=== PATIENT | male | born 1990 | race Caucasian/White ===

== ENCOUNTER 2017-11-04 03:08 | Emergency (ER) | payer SELFPAY ==
[~2017-11-04] VITALS: Ht 188 cm; Wt 82.0 kg
[2017-11-04 04:57] VITALS: BP 117/80
== END 2017-11-04 06:15 | disposition left against medical advice (07) ==
LOC: ED 05:50
DX: F10.120 Alcohol abuse with intoxication, uncomplicated (principal)
CPT/HCPCS: 99283